=== PATIENT | male | born 1960 | race African-American/Black ===

== ENCOUNTER → 2016-07-22 | Outpatient (CLI) | payer OTHER | END | disposition home or self-care (01) | LOC: RAD.S 06-04 10:25 | DX: N63 Unspecified lump in breast (principal); R92.8 Other abnormal and inconclusive findings on diagnostic imaging of breast ==

== ENCOUNTER 2016-11-10 18:34 | Emergency (ER) | payer OTHER | END 2016-11-10 19:15 | disposition home or self-care (01) | LOC: ER 18:34 | DX: S81.811D Laceration without foreign body, right lower leg, subsequent encounter (principal); I11.0 Hypertensive heart disease with heart failure; I50.9 Heart failure, unspecified; Z79.899 Other long term (current) drug therapy; Z88.8 Allergy status to other drugs, medicaments and biological substances; X58.XXXD Exposure to other specified factors, subsequent encounter ==